=== PATIENT | female | born 1980 | race Two or more races ===

== ENCOUNTER 2023-05-28 12:33 | Outpatient (OUT) | payer OTHER, SELFPAY | END 2023-05-28 12:34 | disposition home or self-care (01) | LOC: VC 12:35 | PROVIDERS: PCP Radiology Diagnostic Radiology; Visit Provider Radiology Diagnostic Radiology | DX: I83.813 Varicose veins of bilateral lower extremities with pain (principal) ==

== ENCOUNTER 2024-01-21 09:05 | Outpatient (OUT) | payer OTHER, SELFPAY ==
--- NOTE | 2024-01-21 09:05 | VEIN_ITS ---
Patient Name: AMILCAR CAMPOS MR#: [id number] : 1980 Exam Date: 01/21/2024 Ordering Doctor: DR TRU DAVID M.D. RADIOLOGY REPORT PROCEDURE: VC EXT VENOUS REFLUX KRISTY LMTD COMPARISON: None. INDICATIONS: I83.813 Bilateral painful varicose veins TECHNIQUE: Duplex imaging of the lower extremity to assess the deep and superficial venous system for the presence of deep or superficial venous incompetence and to document the location and severity of disease. The study includes evaluation of the great saphenous vein (GSV), anterior accessory saphenous vein (AASV) and small saphenous vein (SSV). Patient scanned in reverse Trendelenburg and standing. FINDINGS: RIGHT LOWER EXTREMITY: Saphenofemoral Junction Reflux: YesNo 4.6mm sec GSV: Diam (mm) Reflux/ Time (sec) Proximal Thigh 3.8 No Mid Thigh 2.2 Yes 0.4 Distal Thigh 2.8 No Prox Calf 2.4 No Mid Calf 1.4 No Saphenopopliteal Junction Reflux: 1.8mm No SSV: Proximal Calf 1.9 No Mid Calf 1.3 No AASV: Not present Proximal Thigh Mid Thigh Distal Thigh Thrombi: No acute or chronic thrombus visualized Compressibility: Normal Flow: Normal Preforator: No perforators visualized. Tech Note: No incompetent varicose visualized. LEFT LOWER EXTREMITY: Saphenofemoral Junction Reflux: Yes 5.2 mm 0.7 sec GSV: Diam (mm) Reflux/Time (sec) Proximal Thigh 3.5 Yes 0.9 Mid Thigh 3.4 No Distal Thigh 2.9 No Prox Calf 1.6 No Mid Calf 1.2 No Saphenopopliteal Junction Relux: 1.2 mm No SSV: Proximal Calf 1.6 No Mid Calf N/A AASV: Not present Proximal Thigh Mid Thigh Distal Thigh Thrombi: No acute or chronic thrombus visualized Compressibility: Normal Flow: Normal Clearance Representative: Mid/lat calf 3.8mm with 1.6s reflux. Tech Note: Patent varicose vein prox/posterior calf 1.7mm with 0.4s reflux. CONCLUSION: 1. No significant dilation or reflux within the saphenous veins bilaterally. Dictated by: Preet Pastor M.D. on 01/21/2024 at 09:51 Approved by: Preet Pastor M.D. on 01/21/2024 at 10:03
--- NOTE | 2024-01-21 09:05 | VEIN_ITS ---
Patient Name: AMILCAR CAMPOS MR#: [id number] : 1980 Exam Date: 01/21/2024 Ordering Doctor: DR TRU DAVID M.D. RADIOLOGY REPORT PROCEDURE: [facility] - OFFICE VISIT INITIAL COMPARISON: None. PROGRESS NOTES: [age] year old female who presents with a 20 year history of dilated, discolored veins, leg cramping, pain, mild edema. The patient's right leg symptoms are worse than the left. There has been a progression of symptoms over time. This increases with prolonged standing. The patient describes an improvement with rest and elevation. The patient denies any signs and symptoms to suggest arterial ischemia. The patient describes a family history varicose veins on maternal side. The patient has drinking and smoking history of : None. Patient has a past medical history significant for : None. The patient denies a history of deep venous thrombus or pulmonary embolus. See separate history and physical for medication list. No prior treatment for varicose or spider veins. No current use of compression stockings. After review of nurse notes, history and physical exam I discussed at length the pathophysiology of venous hypertension and possible treatments, therapies and strategies available. We discussed at length the importance of elevating the lower extremities above the level of the heart, increased physical activity and compression stocking use. Ultrasound venous reflux study performed today was discussed at length with the patient. The report demonstrates no significantly dilated saphenous veins or significant reflux.. PHYSICAL EXAM: The right leg demonstrates no significant varicosities, numerous reticular and prominent spider veins, no ulceration, no significant edema, no skin discoloration. The left leg demonstrates no significant varicosities, numerous reticular and prominent spider veins, no ulceration, no significant edema, no skin discoloration. Both thighs, legs and feet were symmetrically warm to the touch. Good posterior tibial and dorsalis pedis pulses were present bilaterally. VEIN/VC Facility EST Comprehensive IMPRESSION: 1. No significant venous insufficiency 2. Numerous prominent reticular veins and spider veins. No significant lower extremity varicose veins 3. No significant lower extremity subcutaneous edema 4. No flow significant arterial disease 5. CEAP C1, EC, , PN PLAN: 1. Continued use of compression stockings 2. Elevated legs and increased physical activity symptomatic relief 3. Sclerotherapy of bilateral lower extremity reticular and spider veins. Nurse notes, history and physical were reviewed and confirmed, see attached forms. The nurse was present throughout the physical exam and consultation Dictated by: Preet Pastor M.D. on 01/21/2024 at 10:03 Approved by: Preet Pastor M.D. on 01/21/2024 at 10:08
== END 2024-01-21 09:06 | disposition home or self-care (01) ==
LOC: VC 09:05
PROVIDERS: PCP Radiology Diagnostic Radiology; Visit Provider Radiology Diagnostic Radiology
DX: I83.813 Varicose veins of bilateral lower extremities with pain (principal)
CPT/HCPCS: 93970; G0463